=== PATIENT | female | born 1990 | race Caucasian/White ===

== ENCOUNTER 2017-09-01 14:30 | Emergency (ER) | payer OTHER ==
[2017-09-01 14:46] VITALS: BP 138/88; O2SAT 97
--- NOTE | 2017-09-01 15:57 | EDPHY ---
H & P Time Seen by Provider: 09/01/17 15:33 HPI/ROS: CHIEF COMPLAINT: Persisting sore throat, itchy rash HISTORY OF PRESENT ILLNESS: 27-year-old female presents to the emergency department complaining of pruritic rash and persisting sore throat. The patient was seen at urgent care nearly 1 week ago and was diagnosed with strep pharyngitis. She was started on amoxicillin. She has been taking this now over the last nearly 1 week. She states that she thought she was feeling better but then now developed more worsening sore throat. No fevers or chills. No chest pain or difficulty breathing. No known amoxicillin or penicillin allergy. No abdominal pain or vomiting. No headache. She did take amoxicillin prior to coming to the hospital. REVIEW OF SYSTEMS: Constitutional: No fever, no chills. Eyes: No double or blurry vision. ENT: sore throat. Respiratory: No cough, no shortness of breath. Cardiac: No chest pain. Gastrointestinal: No abdominal pain, vomiting or diarrhea. Genitourinary: No dysuria. Musculoskeletal: No neck or back pain. Skin: Itchy rash as above Neurological: No headache. Past Medical/Surgical History: Negative Social History: Single Smoking Status: Never smoked Physical Exam: General Appearance: Alert, no distress. Afebrile. No apparent distress. Eyes: Pupils equal and round. Extraocular motions are all intact. ENT: Mouth: Mucous membranes moist. Mild posterior pharyngeal injection noted. No exudate. No evidence of peritonsillar abscess. No muffled voice or trismus. Neck is supple without lymphadenopathy. No palpable crepitus with palpation to her neck. Respiratory: No wheezing, rhonchi, or rales, lungs are clear to auscultation. Cardiovascular: Regular rate and rhythm. Gastrointestinal: Abdomen is soft and nontender, no masses, no rebound or guarding, bowel sounds normal. Neurological: Alert and oriented x 3, cranial nerves II through XII grossly intact Skin: Warm and dry, no rashes. Musculoskeletal: Nontender to palpate along the cervical, thoracic or lumbar spine. Neck is supple. Extremities: Full range of motion and no peripheral edema. Psychiatric: Patient is oriented X 3, there is no agitation. Constitutional: Initial Vital Signs Temperature (C) 36.8 C 09/01/17 14:43 Heart Rate 87 09/01/17 14:43 Respiratory Rate 18 09/01/17 14:43 Blood Pressure 138/88 H 09/01/17 14:43 O2 Sat (%) 97 09/01/17 14:43 O2 Delivery Mode Room Air Allergies/Adverse Reactions: No Known Allergies Allergy (Unverified 09/01/17 14:42) Home Medications: Medication Instructions Recorded Amoxicillin 09/01/17 Azithromycin [Zithromax tab 250 mg] 250 mg PO DAILY #6 tab 09/01/17 Medical Decision Making ED Course/Re-evaluation: 27-year-old female presents to the emergency department with ongoing sore throat possible amoxicillin allergy. The patient otherwise has a normal examination however she does have diffuse itching. I did explain to the patient that it is possible that she could have an amoxicillin allergy. The patient will be started on Zithromax. Will stop her amoxicillin. She was given a dose of steroids, Decadron. She was instructed to return to the emergency department if she developed difficulty breathing or swallowing, fevers, or if she felt worse in any way. Patient was comfortable with this plan. No evidence of peritonsillar abscess. The I do not think IV medication or imaging is indicated. Differential Diagnosis: Including but not limited to pharyngitis, mononucleosis, medication reaction, peritonsillar abscess - Data Points Medications Given: Discontinued Medications Dexamethasone (Decadron Injection) 8 mg PO EDNOW ONE Stop: 09/01/17 16:11 Last Admin: 09/01/17 16:13 Dose: 8 mg Departure - Departure Disposition: Home, Routine, Self-Care Clinical Impression: Acute pharyngitis Qualifiers: Pharyngitis/tonsillitis etiology: streptococcus Qualified Code(s): J02.0 - Streptococcal pharyngitis Medication reaction Qualifiers: Encounter type: initial encounter Qualified Code(s): T88.7XXA - Unspecified adverse effect of drug or medicament, initial encounter Condition: Good Instructions: Strep Throat (ED), Antibiotic Medication Allergy (ED) Additional Instructions: Stop amoxicillin as prescribed. You should follow up with primary care provider as an outpatient to discuss possible testing for penicillin allergy. Zithromax as directed for 5 days. Pepcid 20 mg daily for symptoms of itching. Benadryl 50 mg every 6 hr as needed for itching. Caution drowsiness with this medication. Try not to itch the rash as this may potentially cause further itching or spreading. Referrals: Robin Miles MD [Medical Doctor] - 2-3 days, if not improved (Primary care provider quality control auditor) Jaret Jimenes MD [Medical Doctor] - 2-3 days, if not improved (ENT on-call) Prescriptions: Azithromycin [Zithromax tab 250 mg] 250 mg PO DAILY #6 tab
[2017-09-01 16:08] VITALS: PULSE 72; RESP 15; TEMP 98.1
[2017-09-01] MEDS ORDERED: DEXAMETHASONE 10 MG/ML VIAL PO ONE (16:10)
[2017-09-01] MEDS ORDERED: DEXAMETHASONE 4 MG TAB ONE (16:11)
== END 2017-09-01 16:07 | disposition home or self-care (01) ==
DX: J02.0 Streptococcal pharyngitis (principal); T36.0X5A Adverse effect of penicillins, initial encounter